=== PATIENT | male | born 1970 | race Caucasian/White ===

== ENCOUNTER 2022-02-09 15:19 | Outpatient (CLI) | payer MEDICARE, OTHER, MEDICAID, SELFPAY ==
--- NOTE | ~2022-02-09 | CT_ITS ---
EXAMINATION: CT brain wo con DATE: 02/09/2022 16:03 INDICATION: Tongue lesion. TECHNIQUE: Computed tomography (CT) of the head was performed without intravenous contrast. The mA wa s adjusted according to patient size. Iterative reconstruction technique was employed. The dose-lengt h product was 605.33 mGy-cm. COMPARISON: None FINDINGS: There is no intracranial hemorrhage, acute infarction, or abnormal intracranial mass lesion . The ventricles are normal in size. The orbits are normal. The paranasal sinuses are clear. The mast oid air cells are normal. IMPRESSION: 1. Normal brain. Reviewed, dictated and finalized at location B. IMPRESSION: 1. Normal brain.
--- NOTE | ~2022-02-09 | CT_ITS ---
EXAMINATION: CT soft tissue neck wo con DATE: 02/09/2022 16:03 INDICATION: Right-sided tongue lesion. TECHNIQUE: Computed tomography (CT) of the neck was performed without intravenous contrast. Automated exposure control and iterative reconstruction technique were employed. The dose-length product was 4 84.12 mGy-cm. COMPARISON: None FINDINGS: There are no pathologically enlarged lymph nodes. No tongue mass is identified. There is se kaela cervical spondylosis. IMPRESSION: 1. No evidence of malignancy. Reviewed, dictated and finalized at location B.
== END 2022-02-09 15:20 | disposition home or self-care (01) ==
PROVIDERS: PCP Family Medicine Adolescent Medicine; Visit Provider Internal Medicine Hematology & Oncology
DX: K14.9 Disease of tongue, unspecified (principal)
CPT/HCPCS: 70450; 70490

== ENCOUNTER 2023-02-06 09:58 | Emergency (ER) | payer MEDICARE, OTHER, MEDICAID, SELFPAY ==
--- NOTE | ~2023-02-06 | US_ITS ---
EXAMINATION:US venous doppler LE BI INDICATION:Lateral leg swelling. TECHNIQUE: Multiple grayscale, color flow and Doppler images of the right and left lower extremity de ep venous systems were obtained and reviewed. COMPARISON:No prior studies for comparison. FINDINGS: The common femoral, superficial femoral and popliteal veins demonstrate normal respiratory variation, augmentation and compressibility. Color flow is also seen within the posterior tibial, pe roneal, greater saphenous and profunda veins. IMPRESSION: 1: No lower extremity deep venous thrombosis. Reviewed, dictated and finalized at location A.
[2023-02-06 10:00] VITALS: BP 134/72; PULSE 44; RESP 16; TEMP 36.3; O2SAT 100
--- NOTE | 2023-02-06 10:04 | ECG_ITS ---
Measurements Intervals Rex Rate: 44 P: 48 GA: 133 QRS: 57 QRSD: 105 T: 24 QT: 453 QTc: 391 Interpretive Statements SINUS BRADYCARDIA INCOMPLETE RIGHT BUNDLE BRANCH BLOCK [90+ ms QRS DURATION, TERMINAL R IN V1/V2, 40+ ms S IN I/aVL/V4/V5/V6] POSSIBLE OLD INFERIOR MYOCARDIAL INFARCTION NO PREVIOUS ECG AVAILABLE FOR COMPARISON Electronically Signed On 02-06-2023 12:29:48 CDT by Breann Cornelius M.D.
--- NOTE | 2023-02-06 10:17 | ED.GENADULT ---
HPI - General Adult General Chief complaint: Back Pain/Injury Stated complaint: swelling BLE Time Seen by Provider: 02/06/23 10:06 History of Present Illness HPI narrative: Patient is a 52-year-old male with a history of Down syndrome here for evaluation of bilateral lower extremity swelling x1 day. According to patient's certified drug counselor the staff noticed that his legs were swollen and purple today. Patient denies any complaints but they recommended him come to the ED because he had a recent long plane ride to compete in the [employer] and wanted to make sure he did not have a DVT. He ran the 100 meter dash at the event, staff says he typically wears compression stockings daily but did not wear his stockings yesterday. Patient denies any leg pain, numbness, tingling, weakness, chest pain, shortness of breath. He did have some chronic back pain this morning for which staff administered Tylenol and Patient states that he does not have any pain currently. No history of DVT. Related Data Allergies Allergy/AdvReac Type Severity Reaction Status Date / Time No Known Allergies Allergy Verified 01/06/23 08:07 Review of Systems Review of Systems: Gen.: Denies fevers or chills Eyes: Denies eye pain or visual change ENT: Denies congestion Respiratory: Denies shortness of breath or cough CV: Denies chest pain or palpitations GI: Denies abdominal pain nausea, emesis or diarrhea denies burning, urgency, frequency or hematuria Musculoskeletal: Reports leg swelling Neuro: Denies numbness, tingling, weakness or focal weakness Skin: Denies rash Except as documented, all other systems reviewed and negative PMFSH Family History Family History (Updated 01/04/22 @ 13:04 by Melissa Barakat) Father , age 61 Acute myocardial infarction Social History Social History (Updated 01/04/22 @ 13:06 by Melissa Barakat) Smoking status: Never smoker Alcohol intake: never Substance use: never Living arrangements: detention Exam Narrative: APPEARANCE: Well appearing, no pain in distress, well-nourished. Head: Normocephalic and atraumatic. EYES: PERRLA/EOMI, conjunctivae clear NOSE: No nasal drainage EARS: External ear normal in appearance THROAT: Oropharynx is clear. Mucous membranes are moist. NECK: Supple. No adenopathy, no masses. RESPIRATORY: Airway patent, respirations nonlabored. Clear to auscultation bilaterally, no rales, rhonchi, wheezing. CARDIOVASCULAR: 2+ DP PT pulses bilaterally. Regular rate and rhythm without murmurs, rubs, or gallops. ABDOMINAL: Normoactive bowel sounds. Soft, nontender, nondistended. No rebound tenderness or guarding. MUSCULOSKELETAL: There is nonpitting edema to the bilateral lower extremities. Extremities are warm and well-perfused. Moves all extremities well. NEURO: Normal speech. No focal neurologic deficits. SKIN: There are overlying venous stasis changes to the bilateral lower extremities. The skin to the feet is warm and pink. PSYCHIATRIC: Normal affect/mood. Course Vital Signs Vital signs: Vital Signs Temperature 97.3 F L 02/06/23 10:00 Pulse Rate 44 L 02/06/23 10:00 Respiratory Rate 16 02/06/23 10:00 Blood Pressure 134/72 02/06/23 10:00 Pulse Oximetry 100 02/06/23 10:00 Oxygen Delivery Room Air 02/06/23 10:00 Temperature 97.3 F L 02/06/23 10:00 Pulse Rate 50 L 02/06/23 12:03 Respiratory Rate 19 02/06/23 12:03 Blood Pressure 98/68 L 02/06/23 12:03 Pulse Oximetry 98 02/06/23 12:03 Oxygen Delivery Room Air 02/06/23 10:00 Medical Decision Making [facility] Narrative Medical decision making narrative: 52-year-old male here for evaluation of bilateral lower extremity swelling x1 day. Living facility concerned about blood clots. Patient has soft compartments in his legs, strong distal pulses, 5-5 strength and sensation to the legs with trace nonpitting edema to the ankles. Likely dependent edema. Work-up unremarkable, ultrasound negative
[2023-02-06 10:23] VITALS: BP 107/64; PULSE 46; RESP 15; O2SAT 100
[2023-02-06 10:25] LABS: Basophils Absolute Auto 0.1 K/mm3 (0.0-0.1); Basophils Percent Auto 1.1 % (0.2-1.2); Eosinophils Absolute Auto 0.2 K/mm3 (0-0.3); Eosinophils Percent Auto 1.7 % (0-4.4); Hematocrit 43.3 % (42.0-52.0); Hemoglobin 14.3 g/dL (14.0-18.0); Immature Granulocyte Absolute 0.08 K/mm3 (0.00-0.031); Immature Granulocyte Percent A 0.9 % (0-0.5); Lymphocytes Absolute Auto 1.05 K/mm3 (0.9-3.2); Lymphocytes Percent Auto 11.3 % (18.3-44.2); Mean Corpuscular Hemoglobin 31.2 pg (26-34); Mean Corpuscular Volume 94.3 fl (80-100); Mean Platelet Volume 9.7 fl (7.4-10.4); Monocytes Absolute Auto 0.8 K/mm3 (0.1-0.6); Monocytes Percent Auto 8.4 % (2.6-8.5); Neutrophils Absolute Auto 7.2 K/mm3 (1.3-6.7); Neutrophils Percent Auto 76.6 % (45.5-73.1); Platelet Count Result 245 k/mm3 (150-375); Red Blood Count 4.59 M/mm3 (4.6-6.20); Red Cell Distribution Width 13.7 % (11.5-14.5); White Blood Count 9.3 K/mm3 (4.5-10.0)
[2023-02-06 10:38] LABS: Alanine Aminotransferase 70 U/L (6-50); Albumin Level 4.2 g/dL (3.5-5.1); Alkaline Phosphatase 56 U/L (38-126); Anion Gap 5 mmol/L (8-16); Aspartate Amino Transferase 60 U/L (17-59); Bilirubin,Total 0.6 mg/dL (0.2-1.3); Blood Urea Nitrogen 17 mg/dL (9-20); Calcium 8.4 mg/dL (8.4-10.2); Carbon Dioxide 31 mmol/L (22-30); Chloride 101 mmol/L (98-107); Creatine Kinase 127 U/L (55-170); Estimated CRCL calculation 77 ml/min; Estimated Glomerular Filt Rate > 60; Glucose 83 mg/dL (65-110); Potassium 4.6 mmol/L (3.4-5.0); Sodium 137 mmol/L (137-145)
[2023-02-06 10:44] LABS: NT Pro B Type Natriuretic Pept < 20 pg/mL (19.9-100)
--- NOTE | 2023-02-06 11:11 | PC.NURSE ---
Pt in US
[2023-02-06 11:35] VITALS: PULSE 43; RESP 15; O2SAT 98
[2023-02-06 12:03] VITALS: BP 98/68; PULSE 50; RESP 19; O2SAT 98
== END 2023-02-06 12:06 ==
PROVIDERS: Emergency Provider Physician Assistant; PCP Family Medicine Adolescent Medicine
DX: Q90.9 Down syndrome, unspecified (principal); I87.8 Other specified disorders of veins
CPT/HCPCS: 36415; 80053; 82550; 83880; 85025; 93005; 93970; 99284

== ENCOUNTER 2023-05-29 16:40 | Emergency (ER) | payer MEDICARE, OTHER, SELFPAY ==
--- NOTE | ~2023-05-29 | CT_ITS ---
EXAMINATION: CT brain wo con DATE: 05/29/2023 17:51 INDICATION: hi, small lac to chin . TECHNIQUE: Computed tomography (CT) of the head was performed without intravenous contrast. The mA wa s adjusted according to patient size. Iterative reconstruction technique was employed. The dose-lengt h product was 605.33 mGy-cm. COMPARISON: None. FINDINGS: No acute intracranial hemorrhage or extra-axial fluid collection. No hydrocephalus, mass, or herniation. No acute ischemic infarct. Unremarkable dural venous sinus attenuation. No acute osseous abnormality. The aerated spaces are clear. IMPRESSION: No acute intracranial process. Reviewed, dictated and finalized at location K.
--- NOTE | ~2023-05-29 | XR_ITS ---
EXAM: XR knee RT min 4V, XR knee LT min 4V DATE: 05/29/2023 17:27 HISTORY: fall, pain, abrasions . COMPARISON: None available. FINDINGS: Normal mineralization. No fracture or dislocation. No lytic or blastic lesion. Mild bilate ral knee osteoarthritis. No erosion or periosteal change. Bilateral lower extremity varicosities. Mod erate volume right knee joint effusion. IMPRESSION: No acute osseous finding in the left or right knees. Reviewed, dictated and finalized at location K. IMPRESSION: No acute osseous finding in the left or right knees.
--- NOTE | ~2023-05-29 | CT_ITS ---
EXAMINATION: CT cervical spine wo con DATE: 05/29/2023 17:51 INDICATION: fall, HI TECHNIQUE: Computed tomography (CT) of the cervical spine was performed without intravenous contrast. Automated exposure control and iterative reconstruction technique were employed. The dose-length pro duct was 397.60 mGy-cm. COMPARISON: CT soft tissue neck 02/09/2022. FINDINGS: Vertebral Body Alignment: Reversed lordosis centered at C4-5. Stable 3 mm anterolisthesis at C3-4, pr esumably on a degenerative basis. Craniocervical and atlantoaxial alignment: Moderate degenerative change. Alignment intact. Osseous structures/fracture: No evidence of a lytic or blastic process in the visualized spine. No e vidence of acute fracture. Cervical soft tissues: The paraspinal soft tissues planes are maintained. Degenerative changes: Multilevel severe degenerative disc disease. Multilevel moderate facet arthropa thy. Severe right neural foraminal narrowing at C3-4. No severe central canal narrowing. IMPRESSION: No acute fracture or traumatic malalignment in the cervical spine. Reviewed, dictated and finalized at location K.
[2023-05-29 16:40] VITALS: BP 124/72; PULSE 94; RESP 16; TEMP 36.6; O2SAT 98
--- NOTE | 2023-05-29 16:54 | ED.FALL ---
HPI - Fall General Chief Complaint: Fall Stated Complaint: FALL Time Seen by Provider: 05/29/23 16:52 Source: patient and family Mode of arrival: ambulatory Limitations: no limitations History of Present Illness HPI Narrative: Patient is a 52-year-old male, with past medical history of Down Syndrome, who presents to the ED with report of a fall. 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 Family member then helped him up off the ground and to walk back to the car. Family member states patient somewhat fell again walking back to the car, but patient reports his knees gave out on him. He did not lose consciousness. Denies syncope. Complains of pain and abrasions to his bilateral knees, denies headache, dizziness, lightheadedness, trismus, malocclusion, vision changes, nausea, vomiting, chest pain, shortness of breath, abdominal pain. Tetanus status unknown. Related Data Allergies Allergy/AdvReac Type Severity Reaction Status Date / Time No Known Allergies Allergy Verified 05/29/23 16:50 Review of Systems Review of Systems: CONSTITUTIONAL: Denies fever, chills, or sweats. EYES: Denies visual changes. CARDIOVASCULAR: Denies chest pain. RESPIRATORY: Denies dyspnea. GASTROINTESTINAL: Denies abdominal pain, nausea, vomiting. SKIN: See HPI. MUSCULOSKELETAL: See HPI. NEUROLOGIC: See HPI. All systems reviewed & are unremarkable except as noted in HPI and below PMFSH Family History Family History Father , age 61 Acute myocardial infarction Social History Social History Smoking status: Never smoker Alcohol intake: never Substance use: never Living arrangements: [facility] Exam Narrative: GENERAL: Well appearing, well-nourished, non-toxic, in no acute distress. HEAD: Normocephalic. 0.5 cm superficial laceration to anterior chin. No active bleeding. No significant tenderness. No through and through injury. ENT: MMs moist. No mucosal injury. No trismus, malocclusion, stridor. No chipped teeth. NECK: Supple. No adenopathy, no masses. No significant midline spinal tenderness. RESPIRATORY: Airway patent, respirations nonlabored. Clear to auscultation bilaterally, no rales, rhonchi, wheezing. CARDIOVASCULAR: Regular rate and rhythm without murmurs, rubs, or gallops. Radial pulses 2+ and equal bilaterally. ABDOMINAL: Soft, nontender, nondistended, no hepatosplenomegaly. Normoactive BS. MUSCULOSKELETAL: Moves all extremities. Strength/ROM intact without gross deformities. Mild tenderness to anterior knees bilaterally. Patient able to flex at knees without significant discomfort. Sensation intact. No significant tenderness throughout thoracic or lumbar spine. SKIN: Warm, dry, normal color. No rashes. Abrasions to bilateral anterior knees, right greater than left. No larger lacerations. No active bleeding. NEURO: A&O X3. Speech clear. Cranial nerves II-XII grossly intact. Steady gait. No ataxic movements. PSYCHIATRIC: Appropriate mood and affect. Normal interaction. Course Vital Signs Vital signs: Vital Signs Temperature 97.8 F 05/29/23 16:40 Pulse Rate 94 05/29/23 16:40 Respiratory Rate 16 05/29/23 16:40 Blood Pressure 124/72 05/29/23 16:40 Pulse Oximetry 98 05/29/23 16:40 Temperature 97.8 F 05/29/23 16:40 Pulse Rate 94 05/29/23 16:40 Respiratory Rate 16 05/29/23 16:40 Blood Pressure 124/72 05/29/23 16:40 Pulse Oximetry 98 05/29/23 16:40 Procedures Laceration Laceration 1: Date: 05/29/23 Time: 18:25 Site: face (chin) Size (cm): 0.5 Description: linear Depth: simple, single layer Local Anesthetic: none Pre-repair: wound explored and irrigated ====== Skin L
[2023-05-29] MEDS: TETANUS,DIPHTHERIA,AC PERTUSSIS ADULT (0.5 ML) BOOSTRIX IM (17:15)
== END 2023-05-29 18:54 | disposition home or self-care (01) ==
PROVIDERS: Emergency Provider Physician Assistant; PCP Family Medicine Adolescent Medicine
DX: S80.212A Abrasion, left knee, initial encounter (principal); S80.211A Abrasion, right knee, initial encounter; S01.81XA Laceration without foreign body of other part of head, initial encounter; M25.461 Effusion, right knee; Z23 Encounter for immunization; Q90.9 Down syndrome, unspecified; W01.0XXA Fall on same level from slipping, tripping and stumbling without subsequent striking against object, initial encounter; Y93.02 Activity, running
CPT/HCPCS: 12011; 70450; 72125; 73564; 90471; 90715; 99284

== ENCOUNTER 2024-06-04 14:45 | Outpatient (CLI) | payer MEDICARE, MEDICAID, SELFPAY ==
--- NOTE | 2024-06-04 14:50 | ECHO_ITS ---
Patient Info Name: Benjamin Santiago Age: 53 years : 1970 Gender: Male Ht: 63 in Wt: 155 lbs BSA: 1.79 m2 HR: 44 bpm BP: 124 / 78 mmHg Heart Rhythm: Bradycardia Technical Quality: Good Exam Date: 06/04/2024 3:17 PM Exam Location: Echo Lab Patient Status: Outpatient Admit Date: 06/04/2024 Staff Ordering Physician: Bossman Landers DO Crane Ladle Person: Daphne Inman RDCS Attending Provider: Bossman Landers DO Referring Physician: Anshul PÉREZ; Exam Type: CA echo doppler color flow Study Info Indications - down syndrom, unspecefied Complete two-dimensional, color flow and Doppler transthoracic echocardiogram is performed. Summary 1. Complete two-dimensional, color flow and Doppler transthoracic echocardiogram is performed. 2. Left ventricular chamber dimension is normal. 3. Left ventricular systolic function is normal, estimated at 60-65%. 4. The left ventricular diastolic function is grade I diastolic dysfunction. 5. E/e' 5 is not elevated. 6. There is mild aortic valve sclerosis. 7. There is mild to moderate aortic valve regurgitation. 8. There is trace mitral valve regurgitation. 9. No pulmonary hypertension, estimated pulmonary arterial systolic pressure is 34 mmHg. 10. There is mild pulmonic regurgitation. Left Ventricle E/e' 5 is not elevated. Left ventricular chamber dimension is normal. Left ventricular systolic function is normal, estimated at 60-65%. The left ventricular diastolic function is grade I diastolic dysfunction. Right Ventricle Right ventricular systolic function is normal and with normal TAPSE 3.1 cm. Right ventricular chamber dimension is normal. Left Atria Left atrial chamber dimension is normal. Right Atria Right atrial chamber dimension is normal. Aortic Valve The aortic valve is trileaflet. There is mild aortic valve sclerosis. There is no aortic valve stenosis. There is mild to moderate aortic valve regurgitation. Pulmonic Valve There is mild pulmonic regurgitation. Mitral Valve There is no mitral valve stenosis. There is trace mitral valve regurgitation. Tricuspid Valve There is no tricuspid valve regurgitation. No pulmonary hypertension, estimated pulmonary arterial systolic pressure is 34 mmHg. Pericardium/Pleural There is no pericardial effusion. Inferior Vena Cava Normal inferior vena cava with >50% collapse upon inspiration consistent with normal right atrial pressure, 5 mmHg. Aorta The aortic root size at the sinus of Valsalva is normal. Left Ventricular Outflow Tract Name Value Normal LVOT 2D LVOT Diameter 1.9 cm LVOT Doppler LVOT Peak Gradient 8 mmHg LVOT Mean Gradient 4 mmHg LVOT VTI 34 cm LVOT VTI/AV VTI Ratio 0.9 LVOT Stroke Volume 93 ml LVOT CO 3.7 l/min LVOT CI 2.1 l/min/m2 Pulmonic Valve Name Value Normal PV Regurgitation Doppler
== END 2024-06-04 14:46 | disposition home or self-care (01) ==
LOC: ANHCARD 14:47
PROVIDERS: PCP Family Medicine Adolescent Medicine; Visit Provider Internal Medicine Cardiovascular Disease
DX: Q90.9 Down syndrome, unspecified (principal); I08.3 Combined rheumatic disorders of mitral, aortic and tricuspid valves
CPT/HCPCS: 93306

== ENCOUNTER 2024-10-19 08:23 | Outpatient (CLI) | payer MEDICARE, OTHER, MEDICAID, SELFPAY ==
--- OUTSIDE RECORDS SUMMARY | 2024-09-01 08:06 | XMS_ITS | Encounter Summary ---
Author Organization [facility] Address [address] Attn: Epic Prelude ADT [place] RUIZ [id number] Care Team Providers Care Garage Door Technician Name Role Phone Holger Sanz MD Primary Care Provider [phone]- [phone] Encounter Details Date Type Department Care Team (Latest Contact Info) Description 01/26/2022 Travel Social History Tobacco Use Types Packs/Day Years Used Date Smoking Tobacco: Never Smokeless Tobacco: Never Alcohol Use Standard Drinks/Week Comments Not Currently 0 (1 standard drink = 0.6 oz pur e alcohol) Sex and Gender Information Value Date Recorded Sex Assigned at Not on file Gender Identity Not on file Sexual Orientation Not on file COVID-19 Exposure Response Date Recorded In the last 10 days, have yo u been in contact with someone who was confirmed or suspected to have Coronavirus/COVID-19? No / Unsure 01/26/2022 12:48 PM CDT documented as of this encounter Plan of Treatment Not on file documented as of this encounter Visit Diagnoses Not on filedocumented in this encounter Care Teams Garage Door Technician Relationship Specialty Start Date End Date Holger Sanz MD [address] [address] PCP - General Family Practice 01/26/22 documented as of this encounter
--- OUTSIDE RECORDS SUMMARY | 2024-09-01 08:06 | XMS_ITS | Continuity of Care Document ---
Author Organization [facility] Address [address] [place] [address] [place] [address] Phone Care Team Providers Care Check Cashier Name Role Phone [facility] Unavailable Unavail able Beltran Jolley Unavailable Unavailable Advance Directives Directive Yes / No Effective Date File Name No Information Encounters Encounter Description Practice Location Reason(s) For Visit Diagnoses Date Provider Providers Copied on Encounter [facility], [id number] [place] [address] [address], [place], [place], [id number], [place] tel:[phone] [facility] No Information [address] [facility] [address], [address], [place], [place], [id number] , [place]. tel:[phone] Consulting Provider: Beltran Jolley, [address] [facility], [place], [address]. tel:[phone] Family History Family Member Type Diagnosis Age At Onset No Information Payers Payer name Insurance type Covered republican ID Authoriza tion(s) No Information Social History Type Description Quantity Date Captured Comments Sex Male Smoking Status No Information Chief Complaint And Reason For Visit No Information Reason For Referral Reason For Referral No Information History Of Present Illness Encounter Date Complaint History Of Prese nt Illness No Information Functional Status Date Functional Assessmen t No Information Instructions Date Instruction Additional Infor mation No Information Assessments Type Assessment Date No Information Patient Care Teams Name Effective Dates (start - stop) Status Members No Information
--- OUTSIDE RECORDS SUMMARY | 2024-09-01 08:06 | XMS_ITS | Encounter Summary ---
Author Organization [facility] Address [address] [facility] Attn: Epic Prelude ADT [place] [id number] Care Team Providers Care Transition Nurse Name Role Phone Holger Sanz MD Primary Care Provider [phone]- [phone] Encounter Details Date Type Department Care Team (Latest Contact Info) Description 03/10/2022 Travel Social History Tobacco Use Types Packs/Day [...] suspected to have Coronavirus/COVID-19? No / Unsure 03/10/2022 3:30 PM CDT documented as of this encounter Plan of Treatment Not on file documented as of this encounter Visit Diagnoses Not on filedocumented in this encounter Care Teams Transition Nurse Relationship Specialty Start Date End Date Holger Sanz MD [address] [address] PCP - General Family Practice 01/26/22 documented as of this encounter
--- OUTSIDE RECORDS SUMMARY | 2024-09-01 08:06 | XMS_ITS | Clinical Summary ---
Author Organization [facility]3] [facility] Address [address] [place] [address] Care Team Providers Care Supervisor [employer] Name Role Phone Holger Sanz MD Primary Care Provider [phone]- [phone] Allergies No known active allergies Medications Medication Sig Dispensed Refills Start Date End Date Status ciprofloxacin HCl (CILOXAN) 0.3 % ointment 0.25 Inches every 2 hours. For toenail fungus Active Ciclopirox 8 % Solution USE 1 APPLICATION ON THE SKIN DAILY 01/19/2022 Active Active Problems Problem Noted Date Diagnosed Date Tongue lesion 01/26/2022 Family History Relation Name Status Comments Brother Alive Father Mother Alive Sister Alive Social History Tobacco Use Types Packs/Day Years Used Date Smoking Tobacco: Never Smokeless Tobacco: Never Alcohol Use Standard Drinks/Week Comments Not Currently 0 (1 standard drink = 0.6 oz pur e alcohol) Sex and Gender Information Value Date Recorded Sex Assigned at Not on file Gender Identity Not on file Sexual Orientation Not on file Last Filed Vital Signs Vital Sign Reading Time Taken Comments Blood Pressure 105/63 03/10/2022 3:34 PM CDT Pulse 56 03/10/2022 3:34 PM CDT Temperature 37.2 ??C (99 ??F) 03/10/2022 3:34 PM CDT Respiratory Rate - - Oxygen Saturation 96% 03/10/2022 3:34 PM CDT Inhaled Oxygen Concentration - - Weight 70.7 kg (155 lb 14.4 oz) 03/10/2022 3:34 PM CDT Height 161.3 cm (5' 3.5) 03/10/2022 3:34 PM CDT Body Mass Index 27.18 03/10/2022 3:34 PM CDT Plan of Treatment Health Maintenance Due Date Last Done Comments DTAP/TDAP/TD VACCINES (1 - Tdap) 1989 HEPATITIS B VACCINES (1 of 3 - 19+ 3-dose series) 1989 COLORECTAL SCREENING 10/30/2015 Colorectal Cancer Screening 10/30/2015 FIT-DNA Q 3 years 10/30/2015 FIT/FOBT Q 1 year 10/30/2015 Flex Sig/CT Colonography Q 5 years 10/30/2015 ZOSTER VACCINE (1 of 2) 2020 INFLUENZA VACCINE (#1) 2024 PNEUMOCOCCAL VACCINE 0-64 YEARS Aged Out No longer eligible based on patient's age to complete this topic Care Teams Supervisor [employer] Relationship Specialty Start Date End Date Holger Sanz MD [address] [facility] [address] [place] [address] PCP - General Family Practice 01/26/22
--- OUTSIDE RECORDS SUMMARY | 2024-09-01 08:06 | XMS_ITS | Encounter Summary ---
Author Organization [facility] ROSHAN Perez [facility] Address [address] [place] [address] Care Team Providers Care Investigative Shopper Name Role Phone Holger Sanz MD Primary Care Provider +1- [phone] Reason for Visit * Reason Comments Follow Up 3 MONTH F/U Encounter Details Date Type Department Care Team (Late st Contact Info) Description 03/10/2022 3:30 PM CDT Office Visit [facility] Oncology and Hematology - Andrea [address] [facility] [address] [place] [address] Ganesh Gallo MD [address] [facility] [address] [place] [address] Tongue lesion (Primary Dx) Social History Tobacco Use Types Packs/Day Years [...] PM CDT documented as of this encounter Last Filed Vital Signs Vital Sign Reading [...] Mass Index 27.18 03/10/2022 3:34 PM CDT documented in this encounter Progress Notes * Ganesh Gallo MD - 03/10/2022 4:48 PM CDT HEMATOLOGY / ONCOLOGY PROGRESS NOTE Patient Identification: Name: Benjamin Santiago Age: 51 y.o. Sex: male : 1970 DIAGNOSIS Tongue lesion CURRENT TREATMENT Surveillance TREATMENT HISTORY Patient had thyroid biopsy done on March 04, 2022 came back positive for reactive epithelial hyperplasia without any evidence of dysplasia or malignancy. SUBJECTIVE Patient came in the office for follow-up visit. He denies any dysphagia and oral discomfort. Deniesany new lung bumps or lymphadenopathy. No other new complaints. Review of system Constitutional: Patient did not mention fevers, sweats, fatigue, malaise, weight loss HEENT: Patient did not mention sinus congestion, hearing or vision problems Respiratory: Patient did not mention cough, dyspnea, wheeze Cardiovascular: Patient did not mention chest pain, exertional chest pressure/discomfort, nausea, syncope, shortness of breath GI: Patient did not mention constipation, diarrhea, dsyphagia, reflux symptoms, vomiting, melena : Patient did not mention dysuria, frequency, incontinence, urgency Integumentary system: no lymphadenopathy, sweats, flushing Musculoskeletal: Patient not mention: myalgia, arthralgia Neurological: Patient did not mention blurry or disturbed vision, numbness/weakness, dizziness Skin: No lumps, bumps or rashes. Objective: Vital signs in last 24 hours: As per nursing note Exam: General appearance: alert, cooperative, no distress, appears stated age Head: normocephalic, without obvious abnormality, atraumatic Eyes: conjunctivae/corneas clear, EOM's intact Ears: normal external ear canals AU Nose: Nares normal. Septum midline. Mucosa normal. No drainage or sinus tenderness Throat: Lips, mucosa, and tongue normal. Teeth and gums normal Neck: supple, symmetrical, trachea midline. Lungs: clear to auscultation bilaterally Heart: regular rate and rhythm, S1, S2 normal, no murmur, click, rub or gallop Abdomen: soft, non-tender. Bowel sounds normal. No masses, No organomegaly Extremities: extremities normal, atraumatic, no cyanosis or edema Skin: Skin color, texture, turgor normal. No rashes or lesions Lymph nodes: No lymphadenopathy Neuro: No obvious focal deficit PATH LABS @IMAGEIMP@ Assessment: Plan: Patient Active Problem List Diagnosis Date Noted ??? 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 I have reviewed the pathology report. CT scan soft tissue neck and head showed no evidence of lymphadenopathy and malignancy. Patient need no furtherevaluation. He will continue to follow with the primary care physician. Follow-up with us on as-needed basis. ? TOBACCO COUNSELING He is not a tobacco user. 03/10/2022 Ganesh Gallo MD documented in this encounter Plan of Treatment Not on file documented as of this encounter Visit Diagnoses Diagnosis Tongue lesion- Primary Other specified conditions of the tongue documented in this encounter Care Teams Investigative Shopper Relationship Specialty Start Date End Date Holger Sanz MD [address] [address] PCP - General Family Practice 01/26/22 documented as of this encounter
--- OUTSIDE RECORDS SUMMARY | 2024-09-01 08:06 | XMS_ITS | Encounter Summary ---
Author Organization [facility] ROSHAN Perez [facility] Address [address] [place] [address] Care Team Providers Care Assistant Banquet Manager Name Role Phone Holger Sanz MD Primary Care Provider +1- [phone] Encounter Details Date Type Department Care Team (Late st Contact Info) Description 02/11/2022 Orders Only [facility] Oncology and Hematology - Andrea [address] [address] Provider, Abstract NO ADDRESS ON FILE Social History Tobacco Use Types Packs/Day Years [...] on file documented as of this encounter Procedures Procedure Name Priority Date/Time Associated Diagnosis Comments CT HEAD W CONTRAST Routine 02/09/2022 documented in this encounter Results * CT HEAD W CONTRAST (02/09/2022) Anatomical Region Laterality Modality Head Other Abstract Provider CT ORDERABLES documented in this encounter Visit Diagnoses Not on filedocumented in this encounter Care Teams Assistant Banquet Manager Relationship Specialty Start Date End Date Holger Sanz MD [address] [facility] [address] [place] [address] PCP - General Family Practice 01/26/22 documented as of this encounter
--- OUTSIDE RECORDS SUMMARY | 2024-09-01 08:06 | XMS_ITS | Encounter Summary ---
Author Organization [facility] ROSHAN Perez [facility] Address [address] [place] [address] Care Team Providers Care Radiology Services Manager Name Role Phone Holger Sanz MD Primary Care Provider +1- [phone] Reason for Referral * CT Scan (Routine) - Closed Specialty Diagnoses / Procedures Referred By Anand kathleen Referred To Contact Diagnoses Tongue lesion Procedures CT HEAD W + ST NECK W Ganesh Gallo MD [address] [place] [address] [place] [address] Referral ID Status Reason Start Date Expiration Date V isits Requested Visits Authorized [id number] Closed [facility] CTS 01/28/2022 04/29/2022 1 1 * Eval and Treat (Routine) - Closed Specialty Diagnoses / Procedures Referred By Anand kathleen Referred To Contact Otolaryngology Diagnoses Tongue lesion Ganesh Gallo MD [address] [place] [phone] Referral ID Status Reason Start Date Expiration Date Visits Re quested Visits Authorized [id number] Closed 01/26/2022 01/26/2023 1 1 Reason for Visit * Reason Comments Establish Care Establish care for O ral Cancer Encounter Details Date Type Department Care Team (Late st Contact Info) Description 01/26/2022 1:00 PM CDT Office Visit [facility] Oncology and Hematology [place] [address] [address] [address] Ganesh Gallo MD [address] [facility] [address] [place] [address] Tongue lesion (Primary Dx) Social History [...] Recorded In the last 10 days, have bib u been in contact with someone who was confirmed or suspected to have Coronavirus/COVID-19? No / Unsure 01/26/2022 12:48 PM CDT documented as of this encounter Last Filed Vital Signs Vital Sign Reading Time Taken Comments Blood Pressure 118/74 01/26/2022 1:10 PM CDT Pulse 55 01/26/2022 1:10 PM CDT Temperature 36.9 ??C (98.4 ??F) 01/26/2022 1:10 PM CD T Respiratory Rate - - Oxygen Saturation 97% 01/26/2022 1:10 PM CDT Inhaled Oxygen Concentration - - Weight 70.5 kg (155 lb 6.4 oz) 01/26/2022 1:10 P M CDT Height 161.3 cm (5' 3.5) 01/26/2022 1:10 PM CDT Body Mass Index 27.1 01/26/2022 1:10 PM CDT documented in this encounter Progress Notes * Ganesh Gallo MD - 01/26/2022 2:04 PM CDT Hematology-oncology consult Note Requesting Physician Holger Sanz MD Primary Care Physician Holger Sanz MD Problem list There is no problem list on file for this patient. Previous TREATMENT ? Measurable Disease ? Reason for Visit Benjamin Santiago is a 51 y.o. male who was referred for consultation for possible oral cancer. History of present illness This is a 51-year-old male with Down syndrome who has been in good health except history of arthralgia referred to me by patient dentist who evaluated the patient on January 22 and found some tongue bumps and red macule on the hard palate adjacent to the molar area. He denies any oral pain. He denies any new lumps bumps or lymphadenopathy. Weight and appetite stable. He denies any history of chewing tobacco. He drinks occasionally. No history of smoking. He had some secondhand smoking exposure in the past. No other new complaints. Past Medical History Past Medical History: Diagnosis Date ??? Arthritis Surgical History Past Surgical History: Procedure Laterality Date ??? HX EYE SURGERY Medications Current Outpatient Medications Medication Sig Dispense Refill ??? ciprofloxacin HCl (CILOXAN) 0.3 % ointment 0.25 Inches every 2 hours. For toenail fungus No current facility-administered medications for this visit. Allergies No Known Allergies Immunizations: There is no immunization history on file for this patient. Family History No family history on file. Social History Social History Tobacco Use ??? Smoking status: Never Smoker ??? Smokeless tobacco: Never Used Substance Use Topics ??? Alcohol use: Not Currently Review of Systems Constitutional: Patient did not mention fever; no night sweats; no anorexia; no weight loss; no fatique NEENT: Patient did not mention headache; no change in vision; no change in hearing; no sore throat;no dysphagia Respiratory: Patient did not mention shortness of breath; no pleuritic chest pain; no cough; no hemoptysis Cardiac: Patient did not mention cardiac-like chest pain; no palpitations; no orthopnea; no PND; noDOE GI: Patient did not mention abdominal pain; no nausea; no vomiting; no diarrhea; no hematochezia; no melena : Patient did not mention dysuria; no frequency; no hesitancy; no hematuria COMPUTER OPERATIONS MANAGER: Musculosketetal: Patient did not mention bone pain; no arthralgia; no joint swelling; no myalgia; Skin: Patient did not mention pruritis; no rash; no petechiae; no ecchymoses Endocrine: Patient did not mention polydipsia; no polyuria; no unusual weight gain Neuro: Patient did not mention headache; no change in vision; no sensory changes; no muscle weakness; no confusion; no seizures Psych: Patient did not mention anxiety; no depression; Physical Exam Vitals: As per nursing note Constitutional: Well developed, well nourished, no acute distress, non-toxic appearance Teeth and gum. No signs of infection or swelling. Eyes: PERRL, conjunctiva normal HEENT: Atraumatic, external ears normal, nose normal, patient had bumps in the tongue as well as small nodule on the hard palate adjacent to the molar teeth. Neck- normal range of motion, no tenderness, supple Respiratory: No respiratory distress, normal breath sounds, no rales, no wheezing Cardiovascular: Normal rate, normal rhythm, no murmurs, no gallops, no rubs GI: Soft, nondistended, normal bowel sounds, nontender, no splenomegaly, no hepatomegaly, no mass, no rebound, no guarding : No costovertebral angle tenderness Musculoskeletal: No edema, no tenderness, no deformities. Back- no tenderness Integument: Well hydrated, no rash, Digits and nails inspection normal Lymphatic: No lymphadenopathy noted Neurologic: Alert & oriented x 3, CN 2-12 normal, normal motor function, normal sensory function, no focal deficits noted Psychiatric: Speech and behavior appropriate ? labs No results found for this or any previous visit (from the past 24 hour(s)). Pathology ? Imaging & Other Studies Performance Status? Assessment / Plan: ? Possible head and neck cancer. Patient is a 51-year-old pleasant male with a history of Down syndrome with been in good health currently lives in the community housing since November 2021 as his mother moved to assisted living with development of dementia. He was seen by the dentist to foundred macule in the hard palate adjacent to the molar area along with some bumps on the tongue. He denies any history of chewing tobacco and smoking. He had some secondhand smoking exposure. He drinks alcohol occasionally. There is no family history of malignancy. On examination there is a small nodule on the hard palate on the right side as well as visible bumps on the tongue. I will order CT softtissue neck and head as well as consult with ENT. We will asked Dr. Kieran Ford for his evaluation and possible biopsy. I will plan to see him back in couple of weeks to discuss CT scan finding an ENT biopsy result. I have answered all the questions to patient satisfaction. Thank you very much for allowing me to participate in Benjamin Deann Santiago's evaluation and management. Please feel free to contact if I can be of any further assistance in your patient???s care requiring hematology or oncology evaluation. Sincerely, ? ? Ganesh Gallo M.D. cell TOBACCO COUNSELING He is not a tobacco user. Ganesh Gallo MD ,01/26/2022 2:04 PM ? Total time spent 60 minutes, two third of the total time spent counseling patient [id number]. CC:Holger Sanz MD? documented in this encounter Plan of Treatment Scheduled Orders Name Type Priority Associated Diagnoses Orde r Schedule CT HEAD W + ST NECK W Imaging Routine Tongue lesion Expected: 03/09/2022, Expires: 01/26/2023 Scheduled Referrals Name Type Priority Associated Diagnoses Orde r Schedule AMB REFERRAL TO ENT Outpatient Referral Routine Tongue lesion Ordered: 01/26/2022 documented as of this encounter Visit Diagnoses Diagnosis Tongue lesion- Primary Other specified conditions of the tongue documented in this encounter Care Teams Radiology Services Manager Relationship Specialty Start Date End Date Holger Sanz MD [address] [place] [phone] PCP - General Family Practice 01/26/22 documented as of this encounter
--- OUTSIDE RECORDS SUMMARY | 2024-09-01 08:06 | XMS_ITS | Encounter Summary ---
Author Organization [facility] ROSHAN Perez [employer] Address [address] [place] [address] Care Team Providers Care Dressing Room Attendant Name Role Phone Hloger Sanz MD Primary Care Provider +1- [phone] Encounter Details Date Type Department Care Team (Late st Contact Info) Description 03/08/2022 Abstract [facility] Oncology and Hematology - [place] [address] [phone] [place] Social History Tobacco Use Types Packs/Day Years Used Date Smoking Tobacco: Never Smokeless Tobacco: Never Alcohol Use Standard Drinks/Week Comments Not Currently 0 (1 standard drink = 0.6 oz pur e alcohol) Sex and Gender Information Value Date Recorded Sex Assigned at Not on file Gender Identity Not on file Sexual Orientation Not on file documented as of this encounter Plan of Treatment Not on file documented as of this encounter Visit Diagnoses Not on filedocumented in this encounter Care Teams Dressing Room Attendant Relationship Specialty Start Date End Date Holger Sanz MD [address] [facility] [address] [place] [address] PCP - General Family Practice 01/26/22 documented as of this encounter
--- OUTSIDE RECORDS SUMMARY | 2024-09-01 08:06 | XMS_ITS | Encounter Summary ---
Author Organization [facility] ROSHAN Perez [employer] Address [address] [place] [address] Care Team Providers Care Teacher Cclc Name Role Phone Holger Sanz MD Primary Care Provider +1- [phone] Encounter Details Date Type Department Care Team ([facility] st Contact Info) Description 02/10/2022 Orders Only [facility] Oncology and Hematology - Andrea [address] [facility] [address] [place] [address] Ganesh Gallo MD [address] [facility] [address] [place] [address] Tongue lesion Social History Tobacco Use Types Packs/Day Years [...] of this encounter Visit Diagnoses Diagnosis Tongue lesion Other specified conditions of the tongue documented in this encounter Care Teams Teacher Cclc Relationship Specialty Start Date End Date Holger Sanz MD [address] [facility] [address] [place] [address] PCP - General Family Practice 01/26/22 documented as of this encounter
--- OUTSIDE RECORDS SUMMARY | 2024-09-01 08:06 | XMS_ITS | Encounter Summary ---
Author Organization [facility] ROSHAN Perez [facility] Address [address] [place] [address] Care Team Providers Care Key Account Coordinator Name Role Phone Holger Sanz MD Primary Care Provider +1- [phone] Encounter Details Date Type Department Care Team (Late st Contact Info) Description 03/12/2022 Abstract [facility] Oncology and Hematology - [place] [address] [address] [place] Social History Tobacco Use Types [...] on filedocumented in this encounter Care Teams Key Account Coordinator Relationship Specialty Start Date End Date Holger Sanz MD [address] [facility] [address] [place] [phone] PCP - General Family Practice 01/26/22 documented as of this encounter
--- OUTSIDE RECORDS SUMMARY | 2024-10-19 08:41 | XMS_ITS | Continuity of Care Document ---
Author Organization [facility] [place] [address] [place] [address] [place] [address] Phone Care Team Providers Care Animal Technician Name Role Phone [facility] [employer] Unavailable Unavail able Beltran Jolley Unavailable Unavailable Advance Directives Directive Yes / No Effective Date File Name No Information Encounters Encounter Description Practice Location Reason(s) For Visit Diagnoses Date Provider Providers Copied on Encounter [facility], [id number] [place] [address] [address], [place], [place], [id number], [place] tel:[phone] [address] [facility] No Information [address] [facility] [facility] [address] [facility], [address], [place], [place], [id number] , [place]. tel:[phone] Consulting Provider: Beltran Jolley, [address] [facility], [place], [address]. tel:[phone] Family History Family Member Type Diagnosis Age At Onset No Information Payers Payer name Insurance type Covered constitution party ID Authoriza tion(s) No Information Social History [...]
--- OUTSIDE RECORDS SUMMARY | 2024-10-19 08:41 | XMS_ITS | Clinical Summary ---
Author Organization [facility] Address [address] [place] [address] Care Team Providers Care Distribution Center Associate Name Role Phone Holger Sanz MD Primary Care Provider +1- [phone] Allergies No known active allergies Medications ciprofloxacin HCl (CILOXAN) 0.3 % ointment 0.25 Inches every 2 hours. For toenail fungus Active Ciclopirox 8 % Solution USE 1 APPLICATION ON THE SKIN DAILY 2 Active Active Problems Problem Noted Date Diagnosed [...] Recorded Sex Assigned at Not on file Legal Sex Male 2:39 PM CDT Gender Identity Not on file Sexual Orientation Not on file Last Filed Vital Signs Vital Sign Reading Time Taken Comments Blood Pressure 105/63 03/10/2022 3:34 PM CDT Pulse 56 03/10/2022 3:34 PM CDT Temperature 37.2 C (99 F) 03/10/2022 3:34 PM CDT Respiratory Rate - [...] on patient's age to [place] [address] MEDICARE PART A AND B [facility] [id number] POS II MEDICAID [place] Care Teams Distribution Center Associate Relationship Specialty Start Date End Date Holger Sanz MD [address] [address] PCP - General Family Practice 01/26/22
--- NOTE | 2024-11-15 07:42 | WPDSLEEPSTUD ---
Sleep Study Date of Study: 10/19/24 Ordering Provider: Bossman Landers DO Interpreting Physician: Alice Angeles MD Sleep Study Type: Split Polysomnogram Height: 1.6 m Weight: 75.41 kg Body Mass Index: 29.4 Neck Circumference (inches): 17.5 [place]: 4 Reason for Sleep Study Excessive daytime sleepiness, witnessed apneas, bradycardia Sleep History Benjamin Santiago is a 54-year-old man with witnessed apnea and snoring. He has Down syndrome. He was not able to complete the sleep questionnaire, so much of his sleep history is not known. He takes naps at least twice a week. He has excessive daytime sleepiness, reported by his journeyman lineman from his nursing home. He sees Dr. Landers for bradycardia. Normal sleep schedule is not reported. Habits:??Tobacco: none Caffeine: not reported. Alcohol:none Recreational substances: none [facility] Past Medical History Medical History Down syndrome, unspecified Sinus bradycardia Aortic valve regurgitation (05/2024) Mild-moderate on Echo 06/21 Diastolic dysfunction (05/2024) Grade 1 on Echo 06/21 Family History Family History Father , age 61 Acute myocardial infarction Social History Social History Smoking status: Never smoker Alcohol intake: never Substance use: never Lack of Transportation: No Lack of Food: Never True Current Housing: I Have Housing Concerned About Future Housing: No Difficulty Paying Gas/Electric Bills: No Difficulty Paying for Meds: No Currently Unemployed: No Education: High School Diploma/GED Difficulty w/ Childcare or Family Care: No Living arrangements: nursing home Medications Home Medications ?Medication ?Instructions ?Recorded ?Confirmed ?Type comp.stocking,knee,long,medium #24 ea 02/14/23 07/13/24 Rx triamcinolone acetonide 0.1 % 1 applic topical BID #30 grams 06/19/24 07/13/24 Rx topical cream Sleep Procedure A split night polysomnogram using the [employer] multi-channel system recorded the standard physiologic parameters including EEG, EOG, submentalis EMG, anterior tibialis EMG, EKG, body position, nasal and oral airflow using nasal pressure sensor and thermistor. Respiratory parameters of chest and abdominal movements were recorded with Respiratory Inductance Plethysmography belts. Oxygen saturation was recorded by pulse oximetry. Video monitoring was also performed. Sleep stages, periodic limb movements, and EEG arousals were scored in 30 second epochs according to the criteria of the AASM Scoring Manual. The Apnea-Hypopnea Index was calculated using CMS guidelines for definition of hypopnea while scoring respiratory events. After the baseline portion the patient met criteria for a titration with an AHI of 24.6 and desaturation to 80%. He used a medium ResMed AirFit F20 fullface mask and heated humidity, initial pressure was CPAP 5 cm titrated to 7 cm, then 9 cm. At CPAP 9 cm, he had a REM episode lasting 21 minutes, the only REM during the night. He woke up, asked to have the pressure decreased. CPAP was lowered to 7 cm, however he was not able to return to sleep. Other pressures were attempted including CPAP 9, 10 and 11 cm without the patient being able to return to sleep. He had a leg cramp at 4:45 a.m. During the night, he had two trips to the bathroom. At CPAP 9 cm, he spent 95 minutes in bed, 55.5 minutes awake, 18.5 residual AHI 9.4. This was without REM. Sleep Architecture During the diagnostic portion of the study, the total recording time was 198.8 minutes. The total sleep time was 127.0 minutes. Sleep latency was 7.8 minutes. REM latency was - minutes. Sleep Efficiency was 63.9%. The patient had 14 awakenings for an awakening index of 6.6. Wake after sleep onset time was 64.0 minutes. The patient spent 21.0 minutes, 16.5% of total sleep time in Stage N1. The patient spent 91.0 minutes, 71.7% in Stage N2. The patient spent 15.0 minutes, 11.8% in Stage N3. The patient spent no time in Stage REM sleep. At 01:50:31 AM the patient was placed on PAP treatment and was titrated at pressures ranging from 5 cm to 9 cm, and after that, the patient was awake, unable to return to sleep. Other pressures attempted included 10 cm, and 11 cm. During the treatment portion of the study, the total recording time was 256.9 minutes. The total sleep time was 102.0 minutes. Sleep latency was 5.5 minutes. REM latency was 108.5 minutes. Sleep Efficiency was 39.7%. Wake after Sleep Onset time was 149.0 minutes. The patient spent 16.0 minutes, 15.7% of total sleep time in Stage N1. The patient spent 50.5 minutes, 49.5% in Stage N2. The patient spent 14.5 minutes, 14.2% in Stage N3. The patient spent 21.0 minutes, 20.6% in Stage REM. Respiratory Analysis During the diagnostic portion of the study, the patient had 26 hypopneas, 27 obstructive apneas, no mixed or central apneas for an overall Apnea Hypopnea Index of 24.6 events per hour. The REM Apnea Hypopnea Index was 0 as he had no REM on the baseline. The NREM Apnea Hypopnea Index was 24.6. The supine AHI is 50.3. The patient had a Central Apnea Hypopnea Index of 0. There were no Respiratory Effort Related Arousals. The Respiratory Disturbance Index is 25.5 events per hour. There was no evidence of Sami-Pendleton Respirations. During the treatment portion of the study, the patient had 16 hypopneas, 6 obstructive apneas, no mixed apneas, and 3 central apneas for an overall Apnea Hypopnea Index of 14.7 events per hour. The REM Apnea Hypopnea Index was 17.1. The NREM Apnea Hypopnea Index was 14.1. The patient had a Central Apnea Hypopnea Index of 1.8. There were no Respiratory Effort Related Arousals. The Respiratory Disturbance Index is 20.0 events per hour. There was no evidence of Sami-Pendleton Respirations. Arousals During the diagnostic portion of the study, there were a total of 48 arousals for an arousal index of 22.7. There were 12 respiratory arousals for an index of 5.7. There were no periodic limb movement arousals. There were 6 isolated limb movement arousals for an index of 2.8. There were 30 spontaneous arousals for an index of 14.2. During the treatment portion of the study, there were a total of 29 arousals for an index of 17.1. There was 1 respiratory arousal for an index of 0.6. There were 2 periodic limb movement arousals for an index of 1.2. There were 2 isolated limb movement arousals for an index of 1.2. There were 24 spontaneous arousals for an index of 14.1. Periodic Limb Movements During the diagnostic portion of the study, the patient had 20 isolated limb movements with an index of 9.4. The patient had 4 periodic limb movements with an index of 1.9. The patient had a total of 24 limb movements with a total limb movement index of 11.3. During the treatment portion of the study, the patient had 20 isolated limb movements with an index of 11.8. The patient had 13 periodic limb movements with an index of 7.6. The patient had a total of 33 limb movements with a total limb movement index of 19.4. Oximetry Data During the diagnostic portion of the study, the patient had an average oxygen saturation of 97% in wake with a minimum oxygen saturation of 88% and a maximum oxygen saturation of 99% The patient had an average oxygen saturation of 95.2% in sleep with a minimum oxygen saturation of 800% and a maximum oxygen saturation of 990%. The patient had 39 oxygen desaturations resulting in an Oxygen Desaturation Index of 18.4. The patient spent 0.9 minutes, 0.4% of total sleep time with an oxygen saturation less than 88%. During the treatment portion of the study, the patient had an average oxygen saturation of 97.9% in wake with a minimum oxygen saturation of 91% and a maximum oxygen saturation of 100%. The patient had an average oxygen saturation of 95.9% in sleep with a minimum oxygen saturation of 90% and a maximum oxygen saturation of 98%. The patient had 26 oxygen desaturations resulting in an Oxygen Desaturation Index of 15.3. The patient spent no time with an oxygen saturation less than 88%. Snoring Profile Snoring was mild, improved during the titration. Cardiac Profile During the diagnostic portion of the study, the EKG showed normal sinus rhythm. The average pulse rate was 40.3 bpm. The minimum pulse rate was 35 bpm. The maximum pulse rate was 68 bpm. During the treatment portion of the study, the EKG showed normal sinus rhythm. The average pulse rate was 41.9 bpm. The minimum pulse rate was 35 bpm. The maximum pulse rate was 78 bpm. EEG Profile EEG was unremarkable, no evidence of seizures. Assessment and Plan Assessment and Plan (1) Obstructive sleep apnea: Code(s): G47.33 - Obstructive sleep apnea (adult) (pediatric) Status: Acute Assessment and Plan: This split night sleep study on Oct 19, 2024 shows moderate obstructive sleep apnea, the apnea hypopnea index is 24.6 with desaturation to 80%, mild snoring, no REM on baseline. Events were worse in the supine position, supine AHI is 50.3. He had an incomplete titration, was able to have supine REM at CPAP 9 cm with improvement in events, residual AHI was 13.7. He needs a higher pressure than 9 cm to his apnea hypopnea index. I recommend CPAP 10 cm using the medium ResMed AirFit F20 full face mask that he used in the sleep lab, and encourage him to use this with naps to acclimate the PAP therapy. The patient should be prescribed this ResMed equipment as well as tubing, filters and reservoir. This should be used with all episodes of sleep. Compliance should be reviewed within 31-90 days of starting therapy for usage greater than 4 hours per night greater than 70% of the nights. The patient should be asked about symptoms such as excessive daytime sleepiness, quality of sleep, decreased nocturia, increased mental functioning such as memory, mood, and concentration. AutoPAP is a consideration. He had few central apneas on the titration portion. Consider APAP is he has a difficult time adjusting to CPAP 10 cm. (2) Sinus bradycardia: Code(s): R00.1 - Bradycardia, unspecified Status: Acute Assessment and Plan: The patient spent most of the night with heart rate at or below 40 beats per minute. Lowest heart rate was 35 beats per minute. Data The data obtained during this sleep study is adequate for interpretation. Certification This sleep study has been reviewed by a board certified sleep medicine physician.
[2024-11-15 08:28] VITALS: BMI 29.4
== END 2024-10-20 07:11 | disposition home health service (06) ==
PROVIDERS: PCP Family Medicine Adolescent Medicine; Visit Provider Internal Medicine Cardiovascular Disease
DX: G47.10 Hypersomnia, unspecified (principal); G47.33 Obstructive sleep apnea (adult) (pediatric); R00.1 Bradycardia, unspecified
CPT/HCPCS: 95811

== ENCOUNTER 2025-04-27 12:48 | Emergency (ER) | payer MEDICARE, OTHER, MEDICAID, SELFPAY ==
[2025-04-27 13:15] VITALS: BP 107/57; PULSE 60; RESP 16; TEMP 36.6; O2SAT 100
[2025-04-27 13:57] LABS: EDUAAPPEAR Clear; EDUABILI Negative (Negative); EDUABLOOD Negative (Negative); EDUACOLOR1 Yellow; EDUAGLUCOSE Negative (Negative); EDUAKETONE Negative (Negative); EDUALEUKO Negative (Negative); EDUANITRATE Negative (Negative); EDUAPH 6.0; EDUAPROTEIN Negative (Negative); EDUASPGRAVITY 1.030; EDUAUROBILI 0.2
--- NOTE | 2025-04-27 13:57 | ED_ITS ---
HPI - Male Genitourinary General Chief complaint: Urogenital-Male Stated complaint: Uti Symptoms Time Seen by Provider: 04/27/25 13:50 Source: patient, RN notes reviewed and old records reviewed Mode of arrival: ambulatory Limitations: no limitations History of Present Illness HPI Narrative: 54 year old male accompanied by care fiver from [facility] where patient resides. Patient does have Down Syndrome and states that since of parents now his sister and brother are his guardians and he lives at the halfway. Caregiver reports that patient noted to have some confusion today and has had episodes of confusion in past when he had UTI. Caregiver states that patient does have CPAP also. Patient is able to give his medical history and is able to answer all questions appropriately. Caregiver reports last noted UTI in January. MD Complaint: other (concern for possible UTI since patient has been displaying some confusion) Onset (ago): day(s) (1) Associated symptoms: Reports other (no UTI symptoms reported) Related Data Allergies Allergy/AdvReac Type Severity Reaction Status Date / Time metformin AdvReac Intermediate Diarrhea Verified 03/04/25 09:35 Review of Systems Review of Systems: CONSTITUTIONAL: Denies fever, chills, or sweats. CARDIOVASCULAR: Denies chest pain, palpitations, or edema. RESPIRATORY: Denies cough or dyspnea. GASTROINTESTINAL: Denies abdominal pain, nausea, vomiting, or diarrhea. GENITOURINARY: Reports no dysuria, frequency, urgency. Denies flank pain or hematuria. SKIN: Denies rash or itching. MUSCULOSKELETAL: Denies back pain or myalgia. Denies CVA tenderness NEUROLOGIC: Denies headache, caregiver reports that patient had displayed some episodes of confusion and that is what happened last time he had UTI All systems reviewed & are unremarkable except as noted in HPI and below PMFSH Past Medical History Medical History Down syndrome, unspecified Sinus bradycardia Aortic valve regurgitation (05/2024) Mild-moderate on Echo 06/21 Diastolic dysfunction (05/2024) Grade 1 on Echo 06/21 Family History Family History Father , age 61 Acute myocardial infarction Social History Social History Smoking status: Never smoker Alcohol intake: never Substance use: never Lack of Transportation: No Lack of Food: Never True Current Housing: I Have Housing Concerned About Future Housing: No Difficulty Paying Gas/Electric Bills: No Difficulty Paying for Meds: No Currently Unemployed: No Education: High School Diploma/GED Difficulty w/ Childcare or Family Care: No Living arrangements: halfway Comments At time of signature, agree with nursing past medical, surgical, social and family history. There is no relevant family history pertinent to the presenting complaint Exam Narrative: GENERAL: Well-appearing, well-nourished, and in no acute distress. HEAD: Normocephalic, atraumatic. NECK: Supple. CHEST: Clear to auscultation. No respiratory distress.SAO2 100% on room air HEART: Regular rate and rhythm. No murmur heard. Normal peripheral pulses. ABDOMEN: Soft, nontender, nondistended, normal active bowel sounds. No CVA tenderness denies any burning or pain with urination EXTREMITIES: Normal range of motion. No edema noted is wearing his bilateral wiliam hose. SKIN: Warm, dry, no rash. NEURO: No focal deficits. Alert and oriented x3. able to provide history and answers all questions appropriately Course Course Emergency Course: Patient is aware of diagnosis, understands and agrees to treatment plan.? Anticipatory guidance given.? Patient agrees to follow-up as directed and is aware of reasons to seek care at the emergency department. Portions of this record may have been created with voice recognition software Level of Care: Express Care Visit Vital Signs Vital signs: Vital Signs Temperature 36.6 C 04/27/25 13:15 Pulse Rate 60 04/27/25 13:15 Respiratory Rate 16 04/27/25 13:15 Blood Pressure 107/57 L 04/27/25 13:15 Pulse Oximetry 100 04/27/25 13:15 Oxygen Delivery Room Air 04/27/25 13:15 Temperature 36.6 C 04/27/25 13:15 Pulse Rate 60 04/27/25 13:15 Respiratory Rate 16 04/27/25 13:15 Blood Pressure 107/57 L 04/27/25 13:15 Pulse Oximetry 100 04/27/25 13:15 Oxygen Delivery Room Air 04/27/25 13:15 MDM - Male Genitourinary Differential Diagnosis Differential diagnosis: Likely other (episode of confusion, concern for possible UTI, urine screening for infection) Medical Records Attestation: I reviewed the patient's medical records. Lab Data Attestation: I reviewed the patient's lab results. Lab results narrative: urine dip reviewed with urine yellow and clear, specific gravity 1.030, negative for blood or Leukocyte esterase. WILL SEND FOR CULTURE Labs: Lab Results 04/27/25 Range/Units 13:53 POC Urine Color Yellow POC Urine Clarity Clear POC Urine pH 6.0 POC Ur Specif [place] 1.030 POC Urine Protein Negative (Negative) POC Ur Glucose (UA) Negative (Negative) POC Urine Ketones Negative (Negative) POC Urine Blood Negative (Negative) POC Urine Nitrite Negative (Negative) POC Urine Bilirubin Negative (Negative) POC Urine Urobilinogen 0.2 POC U Leukocyte Esteras Negative (Negative) reviewed Critical Care Time Critical Care Time Critical Care Time: No Discharge Plan Discharge Clinical Impression: Episode of confusion, Normal urinalysis Patient Disposition: Home Condition: Stable Additional Instructions: Increase fluids especially cranberry juice and water Avoid caffeine and carbonated beverages monitor for episodes of confusion if occurrences continue follow-up in emergency room Follow-up with her primary care provider if further problems or concerns Recheck if you have fever over 101, nausea and vomiting. If your symptoms persist, change or worsen significantly before you can contact your personal physician then please, without delay, go to the emergency department for further evaluation. Follow-up with PCP in 7-10 days or sooner if needed urine culture sent Patient Language: Georgian Prescriptions: No Action (DME) comp.stocking,knee,long,medium Misc See Rx Instructions .Route Qty: 24 0RF Rx Instructions: As directed triamcinolone acetonide 0.1 % cream 1 applic topical BID Qty: 30 1RF Follow-up/Referrals: Holger Sanz MD [Primary Care Provider, [facility]] Time of Disposition: 14:04 Quality [place] Coma Scale Eyes: Open Verbal: Oriented and Alert Motor: Follows Commands [place] Total Score: 15
== END 2025-04-27 14:07 | disposition home or self-care (01) ==
PROVIDERS: Emergency Provider Registered Nurse; PCP Family Medicine Adolescent Medicine
DX: R41.0 Disorientation, unspecified (principal); Q90.9 Down syndrome, unspecified; I35.1 Nonrheumatic aortic (valve) insufficiency
CPT/HCPCS: 81003; 87086; 99213; G0463